=== PATIENT | male | born 1990 | race Caucasian/White ===

== ENCOUNTER 2016-10-30 03:37 | Observation (INO) | payer OTHER ==
[2016-10-30] VITALS (10 sets, daily range): BP systolic 112–135; BP diastolic 67–83
[~2016-10-30] VITALS: Ht 177.8 cm; Wt 100.0 kg
--- NOTE | 2016-10-30 05:53 | ED ORDER SUMMARY ---
..... Patient: ANUPAMA LAYNE OrderSheet [facility] VisitID: [id number] [place] [address] 25y, M Registration Date/Time: 10/30/2016 ORDER SHEET Weight: 99.7 kg (stated) Allergies: No Known Drug Allergy GENERAL ORDERS: Abdomen 1V Upright Urgent (03:51 10/30/2016 Monet PHELPS) (Ack 3:53 LMuller) (4:46 LMuller) CBC w Diff Urgent (03:52 10/30/2016 Monet PHELPS) (Ack 3:53 LMuller) (3:56 OZIELullard R.N.) CMP Urgent (03:52 10/30/2016 Monet PHELPS) (Ack 3:53 LMuller) (3:56 OZIELullard R.N.) Amylase Urgent (03:52 10/30/2016 Monet PHELPS) (Ack 3:53 LMuller) (3:56 OZIELullstevie R.N.) Lipase Urgent (03:52 10/30/2016 Monet PHELPS) (Ack 3:53 LMuller) (3:56 OZIELullard R.N.) UA-Culture if indicated Urgent (03:52 10/30/2016 Monet PHELPS) (Ack 3:53 LMuller) (4:34 Daxa R.N.) Urine Drug Screen Urgent (03:52 10/30/2016 Monet PHELPS) (Ack 3:53 LMuller) (4:34 OZ[address] R[address]N.) CT Abd/Pel w Cont (No) (N/A) Urgent (05:01 10/30/2016 Monet PHELPS) (Ack 5:01 LMuller) (5:22 LMuller) MEDICATION ORDERS: IV FLUIDS: IV NS : initial bolus 500 mL (1000 mL/hr), then 250 mL/hr for 4h (NOW); Routine (03:51 10/30/2016 Monet PHELPS) (4:35 Daxa R.N.) Zofran IV 4 mg (NOW) (03:52 10/30/2016 Monet PHELPS) (4:35 Daxa Sow) Dilaudid IV 0.5 mg (NOW) (03:52 10/30/2016 Monet PHELPS) (4:35 Daxa Sow) Dilaudid IV 1 mg (NOW) (05:58 10/30/2016 Monet PHELPS) (6:12 Daxa Florentino.) Zofran IV 4 mg (NOW) (05:59 10/30/2016 Monet PHELPS) (6:12 Daxa Sow) Invanz IV 1 gm (NOW) (06:00 10/30/2016 Monet PHELPS) (6:29 Daxa Sow) ORDER SHEET NOTES: [Electronically signed by Morgan Burrell MD (20:44 10/30/2016)] [Electronically signed by Darryl Hargrove R.N. (03:16 11/07/2016)] [Electronically locked/signed by Darryl Hargrove R.N. (03:16 11/07/2016)]
--- NOTE | 2016-10-30 05:53 | ED ORDER SUMMARY ---
..... Patient: ANUPAMA LAYNE OrderSheet [facility] VisitID: [id number] [place] [address] 25y, M Registration Date/Time: 10/30/2016 ORDER SHEET Weight: 99.7 kg (stated) Allergies: No Known Drug Allergy GENERAL ORDERS: Abdomen 1V Upright Urgent (03:51 10/30/2016 Monet PHELPS) (Ack 3:53 LMuller) (4:46 LMuller) CBC w Diff Urgent (03:52 10/30/2016 Monet PHELPS) (Ack 3:53 LMuller) (3:56 OZIELullard R.N.) CMP Urgent (03:52 10/30/2016 Monet PHELPS) (Ack 3:53 LMuller) (3:56 OZIELullard R.N.) Amylase Urgent (03:52 10/30/2016 Monet PHELPS) (Ack 3:53 LMuller) (3:56 OZIELullstevie R.N.) Lipase Urgent (03:52 10/30/2016 Monet PHELPS) (Ack 3:53 LMuller) (3:56 OZIELullard R.N.) UA-Culture if indicated Urgent (03:52 10/30/2016 Monet PHELPS) (Ack 3:53 LMuller) (4:34 Daxa R.N.) Urine Drug Screen Urgent (03:52 10/30/2016 Monet PHELPS) (Ack 3:53 LMuller) (4:34 OZIELullstevie R.N.) CT Abd/Pel w Cont (No) (N/A) Urgent (05:01 10/30/2016 Monet PHELPS) (Ack 5:01 LMuller) (5:22 LMuller) MEDICATION ORDERS: IV FLUIDS: IV NS : initial bolus 500 mL (1000 mL/hr), then 250 mL/hr for 4h (NOW); Routine (03:51 10/30/2016 Monet PHELPS) (4:35 Daxa R.N.) Zofran IV 4 mg (NOW) (03:52 10/30/2016 Monet PHELPS) (4:35 Daxa Sow) Dilaudid IV 0.5 mg (NOW) (03:52 10/30/2016 Monet PHELPS) (4:35 Daxa Sow) Dilaudid IV 1 mg (NOW) (05:58 10/30/2016 Monet PHELPS) (6:12 Daxa Florentino.) Zofran IV 4 mg (NOW) (05:59 10/30/2016 Monet PHELPS) (6:12 Daxa Sow) Invanz IV 1 gm (NOW) (06:00 10/30/2016 Monet PHELPS) (6:29 Daxa Sow) ORDER SHEET NOTES: [Electronically signed by Morgan Burrell MD (20:44 10/30/2016)] [Electronically signed by Darryl Hargrove R.N. (03:16 11/07/2016)] [Electronically locked/signed by Darryl Hargrove R.N. (03:16 11/07/2016)]
--- NOTE | 2016-10-30 05:53 | ED CLINICAL REPORT ---
Clinical Report - Physicians/Mid Levels [facility] [address] [place] [address] 10/30/2016 3:38 Patient: ANUPAMA LAYNE Time Seen: 03:47 Oct 30 2016. Arrived- By private vehicle. Historian- patient. CPT: ER phys charges level 5 (#[id number]). HISTORY OF PRESENT ILLNESS Chief Complaint: ABDOMINAL PAIN and DIARRHEA and NAUSEA. At its maximum, severity described as severe. When seen in the E.D., severity described as severe. Modifying factors- worsened by movement. Relieved by rest. It is described as "pain" and it is described as located in the right lower quadrant and in the periumbilical area. (The patient has had nausea and abdominal pain. He has had diarrhea (2 today). Last oral intake by patient was (3 1/2 hours ago).). Is still present. The patient has had nausea and vomiting. He has had mild diarrhea. This has occurred twice. Similar symptoms previously: None. Recent medical care: Not recently seen/assessed. REVIEW OF SYSTEMS No constipation, black stools, hematemesis, difficulty with urination or pain with urination. No urinary frequency, fever, sore throat or throat or chest pain. No difficulty breathing, cough, joint pain, skin rash or chills. No back pain, fever, cough, weakness or diabetic symptoms. No easy bruising. All systems otherwise negative, except as recorded above. PAST HISTORY Negative. Problems: no known problems. Medications: None. Allergies: No Known Drug Allergy. SOCIAL HISTORY History of drug use: marijuana. ADDITIONAL NOTES The nursing notes have been reviewed. PHYSICAL EXAM Vital Signs: 10/30/2016 03:41 BP: 122/77. HR: 82. RR: 24. O2 saturation: 99%. Temp: 98.7 F. Appearance: Alert. Appears to be in pain. Patient in moderate distress. Eyes: Eyes normal inspection. ENT: Pharynx normal. Neck: Normal inspection. Neck supple. CVS: Normal heart rate and rhythm. Heart sounds normal. Pulses normal. Respiratory: No respiratory distress. Breath sounds normal. Chest nontender. Abdomen: Soft. Moderate tenderness in the right side of the abdomen, periumbilical area and right lower quadrant with guarding present. Abnormal bowel sounds: diminished. No mass. Back: Normal inspection. No CVA tenderness. Skin: Skin warm. Normal skin color. No rash. Extremities: Extremities exhibit normal ROM. No lower extremity edema. Neuro: Oriented X 3. No motor deficit. No sensory deficit. LABS, X-RAYS, AND EKG Abdominal CT: There is evidence of appendicitis (retrocecal.). No inflammatory phlegmon, focal abscess or perforation with free air. Abdominal CT performed with IV contrast. The study was independently viewed by me, interpreted by the radiologist and discussed with the radiologist. Laboratory Tests: UA-Culture if indicated: (KSENIA: 10/30/2016 03:39) ( MsgRcvd 10/30/2016 05:22) Final results Test Result Flag Units (Reference) URINE COLOR YELLOW URINE APPEARANCE SLIGHTLY HAZY URINE GLUCOSE NEGATIVE (NEGATIVE) URINE BILIRUBIN NEGATIVE (NEGATIVE) URINE KETONE NEGATIVE (NEGATIVE) URINE SPECIFIC GRAVITY 1.025 (1.010-1.030) URINE PH 7.0 (5.0-8.0) URINE PROTEIN NEGATIVE (NEGATIVE) URINE UROBILINOGEN 0.2 EU/dL (0.2-1.0) URINE NITRITE NEGATIVE (NEGATIVE) URINE BLOOD NEGATIVE (NEGATIVE) URINE LEUK ESTERASE NEGATIVE (NEGATIVE) URINE RBC RARE rbc/hpf (0-1) URINE WBC 0-1 wbc/hpf (0-1) URINE EPITHELIAL CELLS NONE SEEN EPI/hpf (0-5) URINE BACTERIA NONE SEEN (NONE SEEN) URINE COMMENT CULT NOT INDICATED 3+ AMORPHOUSURINE CULTURES ARE SET-UP BASED ON THE FOLLOWING CRITERIA:POSITIVE NITRITEPOSITIVE LEUKOCYTE ESTERASEGREATER THAN 10 WHITE BLOOD CELLSMODERATE (2+) OR GREATER BACTERIA CBC w Diff: (KSENIA: 10/30/2016 03:45) ( MsgRcvd 10/30/2016 04:02) Final results Test Result Flag Units (Reference) WHITE BLOOD COUNT 13.8 H K/uL (4.5-11.5) RED BLOOD COUNT 6.02 *H M/uL (4.50-5.90) HEMOGLOBIN 16.6 gm/dL (13.5-17.5) HEMATOCRIT 49.4 % (41.0-53.0) MEAN CELL VOLUME 82 fL (80-100) MEAN CORPUSCULAR HGB 28 pg (26-34) MEAN CORPUSCULAR HGB CONC 34 g/dL (31-37) RED CELL DISTRIBUTION WIDTH 13.3 % (11.6-14.8) PLATELET COUNT 249 K/uL (150-400) NEUTROPHIL % 66.4 % (50-75) LYMPH % 24.7 L % (25-40) MONO % 7.8 % (3-14) EOSINOPHIL % 0.4 % (0-4) BASOPHIL % 0.7 % (0-2) Urine Drug Screen: (KSENIA: 10/30/2016 03:45) ( MsgRcvd 10/30/2016 05:33) Final results Test Result Flag Units (Reference) AMPHETAMINE/METHAMPHETAMINE NEGATIVE (NEGATIVE) BARBITURATE NEGATIVE (NEGATIVE) BENZODIAZEPINE NEGATIVE (NEGATIVE) CANNABINOID POSITIVE H (NEGATIVE) COCAINE NEGATIVE (NEGATIVE) ECSTASY NEGATIVE (NEGATIVE) METHADONE NEGATIVE (NEGATIVE) OPIATE NEGATIVE (NEGATIVE) The urine drug screen is a qualitative screening test fordrug overdose and abuse. All screen results should beconsidered as presumptive.Drugs screened for are as follows:BenzodiazepinesCocaineAmphetamines/MetamphetaminesTHC (Tetrahydrocannabinol)OpiatesBarbituratesEcstasyMethadonePositive results are unconfirmed. For confirmation, notifythe lab for the specimen to be sent to the reference lab.All confirmations must be performed by a differentmethodology.The ingestion of natural herbal and plant productscontaining Ephedra/Ephedra metabolites can produce in urineone or more substances capable of cross reacting withamphetamine/methamphetamine immunoassays. These testsprovide a preliminary result only. A more specificalternative chemical method must be used to obtain aconfirmed analytical result. CMP: (KSENIA: 10/30/2016 03:45) ( MsgRcvd 10/30/2016 04:17) Final results Test Result Flag Units (Reference) GLUCOSE 103 mg/dL (70-110) BUN 23 H mg/dL (7-18) CREATININE 1.0 mg/dL (0.6-1.3) Estimated GFR >60 mL/min Estimated GFR- >60 mL/min Note: Persistent reduction over 3 months in eGFR<60 mL/min/1.73 m2 defines CKD. Patients with eGFR values>=60 mL/min/1.73 m2 may also have CKD if evidence ofpersistent proteinuria. Additional information may be foundat www.kidney.org. SODIUM 142 mmol/L (136-145) POTASSIUM 3.7 mmol/L (3.5-5.1) CHLORIDE 104 mmol/L (98-107) CARBON DIOXIDE 26 mmol/L (21-32) CALCIUM 9.7 mg/dL (8.5-10.1) TOTAL PROTEIN 8.6 H g/dL (6.4-8.2) ALBUMIN 4.4 g/dL (3.3-5.0) BILIRUBIN, TOTAL 0.4 mg/dL (0.0-1.0) ALKALINE PHOSPHATASE 83 U/L (46-116) AST (SGOT) 21 U/L (15-37) ALT (SGPT) 39 U/L (12-78) LIPASE 159 U/L (73-393) AMYLASE 54 U/L (25-115) . PROGRESS AND PROCEDURES Course of Care: IV NS Dilaudid 0.5 mg Iv Zofran 4 mg IV Minimally better Dilaudid 1 mg Iv Zofran 4 mg IV Invanz 1g IV Patient is stable. Discussed case with on-call health care provider, (Karis). Reviewed test results. Agreed upon treatment plan and decision to admit. Health care provider will see patient in hospital. Patient/family counseled. Disposition orders written. Disposition: Admitted to Acute Care. CLINICAL IMPRESSION Acute appendicitis with localized peritonitis. (Electronically signed by Morgan Burrell MD 10/30/2016 20:44)
--- NOTE | 2016-10-30 05:53 | ED NURSING NOTES ---
Clinical Report - Nurses [place] [address] [place] [address] 10/30/2016 3:38 Patient: ANUPAMA LAYNE TRIAGE Triage time 0340. Chief Complaint: ABDOMINAL PAIN, NAUSEA and DIARRHEA. --03:45 Darryl Hargrove R.N. 03:41 10/30/16. BP: 122/77. HR: 82. RR: 24. O2 saturation: 99%. Temp: 98.7 F. Pain level now 08/03. --03:45 Darryl Hargrove R.N. Weight: 99.7 kg stated. Height/Length: 70 inches Per Patient. BMI: 31.5. --03:42 Darryl Hargrove R.N. Medications None. --03:44 Darryl Hargrove R.N. Allergies No Known Drug Allergy. --03:44 Darryl Hargrove R.N. History Arrived by private vehicle. Historian: patient. Accompanied by family. The patient has had nausea and abdominal pain. He has had diarrhea (2 today). Last oral intake by patient was (3 1/2 hours ago). SOCIAL HX: History of drug use: marijuana. No infectious disease exposure. FALL RISK ASSESSMENT: Fall risk assessment completed. No fall risk identified. NUTRITIONAL RISK ASSESSMENT: The nutritional risk assessment revealed no deficiencies. FUNCTIONAL ASSESSMENT: Functional assessment: no impairments noted. LEARNING NEEDS ASSESSMENT: The learning needs assessment revealed no barriers. SKIN INTEGRITY ASSESSMENT: Skin integrity risk assessment completed. No skin integrity risk identified. --03:45 Darryl Hargrove R.N. Interventions ID band on patient. --03:45 Darryl Hargrove R.N. PHYSICAL ASSESSMENT GENERAL / NEURO / PSYCH: Alert. Oriented X 4. HEENT: Mucous membranes are pink. RESPIRATORY: Respirations not labored. CVS: Capillary refill less than 2 seconds. GI / : Abdomen soft. SKIN: Skin is warm and dry. --03:45 Darryl Hargrove R.N. Ambulatory to room. --03:45 Darryl Hargrove R.N. ( negative for rebounding). --03:48 Darryl Hargrove R.N. NURSING PROGRESS NOTES 03:47 10/30/2016 Site #1 started via IV in the left antecubital space with an 18g angiocath, with aseptic technique and good blood return; one attempt. Blood drawn: rainbow set. Labeled in the presence of the patient and sent to the lab. Saline lock flushed with saline. --03:47 Darryl Hargrove R.N. Patient gowned. Head of bed elevated. Reassurance given. Patient identifiers checked. Call light placed in reach. Bed placed in lowest position. Brakes of bed on. --03:47 Darryl Hargrove R.N. 04:35 10/30/2016 Dilaudid (HYDROmorphone HCl PF) IVP 0.5 mg given. via site #1. Allergies verified, confirmed 5 rights and sedative warning given to the patient and patient's family. IV patency established. IV site checked: no pain, redness, or swelling. IV flushed thoroughly pre- and post-medication administration. IVP given by RN. --04:35 Darryl Hargrove R.N. 04:35 10/30/2016 Zofran (Ondansetron HCl) IVP 4 mg given. via site #1. Allergies verified and confirmed 5 rights. IV patency established. IV site checked: no pain, redness, or swelling. IV flushed thoroughly pre- and post-medication administration. IVP given by RN. --04:35 Darryl Hargrove R.N. 04:35 10/30/2016 Started bag #1 1000 mL IV Fluids IV NS (Saline); bolus of 1000 mL wide open via site #1. Allergies verified and confirmed 5 rights. IV patency established. IV site checked: no pain, redness, or swelling. IV flushed thoroughly pre- and post-medication administration. --04:35 Darryl Hargrove R.N. 06:12 10/30/2016 Dilaudid (HYDROmorphone HCl PF) IVP 1 mg given. via site #1. Allergies verified, confirmed 5 rights and sedative warning given to the patient and patient's family. IV patency established. IV site checked: no pain, redness, or swelling. IV flushed thoroughly pre- and post-medication administration. --06:12 Darryl Hargrove R.N. 06:12 10/30/2016 Zofran (Ondansetron HCl) IVP 4 mg given. via site #1. Allergies verified and confirmed 5 rights. IV patency established. IV site checked: no pain, redness, or swelling. IV flushed thoroughly pre- and post-medication administration. IVP given by RN. --06:12 Darryl Hargrove R.N. 06:29 10/30/2016 Invanz IVP 1 gm given. via site #1. Allergies verified and confirmed 5 rights. IV patency established. IV site checked: no pain, redness, or swelling. IV flushed thoroughly pre- and post-medication administration. --06:29 Darryl Hargrove R.N. Locked/Released at 11/07/2016 3:16 by Darryl Hargrove R.N.
--- NOTE | 2016-10-30 07:03 | DIAGNOSTIC IMAGING REPORT ---
PROCEDURE: XR ABDOMEN 1 VIEW UPRIGHT INDICATION: ABDOMINAL PAIN TECHNIQUE: AP upright view. COMPARISON: None. FINDINGS: Nonspecific bowel gas pattern with mild residual stool. No suspicious mass or calcification. Bones are unremarkable. IMPRESSION: 1. Nonspecific bowel gas pattern.
--- NOTE | 2016-10-30 07:13 | DIAGNOSTIC IMAGING REPORT ---
PROCEDURE: CT ABD/PELVIS WITH CONTRAST CLINICAL INDICATION: Upper abdominal pain with nausea and vomiting. Initial encounter. TECHNIQUE: 100 ml of Isovue 300 were injected intravenously and axial images were obtained of the entire abdomen and pelvis with sagittal and coronal reformations. COMPARISON: None. FINDINGS: ABDOMEN: Appendicolith with dilated (1.1 cm) fluid filled appendix and mild adjacent fat stranding. No evidence of an abscess. Lung bases are clear. Heart size is normal. Liver, gallbladder, pancreas, spleen, adrenal glands, kidneys and abdominal aorta are normal. PELVIS: There is no pelvic mass, inflammatory changes or free fluid. Bones are unremarkable. IMPRESSION: 1. Appendicolith with findings consistent with acute appendicitis 2. Preliminary results submitted [facility] Cam[facility]. All CT scans at this facility use dose modulation, iterative reconstruction, and/or weight-based dosing when appropriate to reduce radiation dose to as low as reasonably achievable.
--- NOTE | 2016-10-30 07:13 | DIAGNOSTIC IMAGING REPORT ---
PROCEDURE: CT ABD/PELVIS WITH CONTRAST CLINICAL INDICATION: Upper abdominal pain with nausea and vomiting. Initial encounter. TECHNIQUE: 100 ml of Isovue 300 were injected intravenously and axial images were obtained of the entire abdomen and pelvis with sagittal and coronal reformations. COMPARISON: None. FINDINGS: ABDOMEN: Appendicolith with dilated (1.1 cm) fluid filled appendix and mild adjacent fat stranding. No evidence of an abscess. Lung bases are clear. Heart size is normal. Liver, gallbladder, pancreas, spleen, adrenal glands, kidneys and abdominal aorta are normal. PELVIS: There is no pelvic mass, inflammatory changes or free fluid. Bones are unremarkable. IMPRESSION: 1. Appendicolith with findings consistent with acute appendicitis 2. Preliminary results submitted by Dr. Camacho, [facility] radiology. All CT scans at this facility use dose modulation, iterative reconstruction, and/or weight-based dosing when appropriate to reduce radiation dose to as low as reasonably achievable.
[2016-10-30] MEDS ORDERED: NORCO1 TA1 PO (13:14)
--- NOTE | 2016-10-30 13:15 | Provider's Discharge Care Plan ---
Problem, Goal, Plan Problem List 1. Acute appendicitis
--- NOTE | 2016-10-30 13:15 | Provider's Discharge Care Plan ---
Problem, Goal, Plan Problem List 1. Acute appendicitis
--- NOTE | 2016-10-30 14:09 | CONSULTATION REPORT ---
DATE OF CONSULTATION: 10/30/2016 CHIEF COMPLAINT: 1. Abdominal pain HISTORY OF PRESENT ILLNESS: The patient is a 25-year-old man presenting with a 2 -day history of worsening right lower quadrant abdominal pain. The patient reports that he had some loose stools at the onset of the pain, but no ongoing diarrhea. He had nausea but no vomiting. The pain is now worsening in the right lower quadrant of the abdomen and localized to one site. He does not feel hungry. MEDICAL/SURGICAL HISTORY: Medical problems none. Surgery none. MEDICATIONS: 1. None. ALLERGIES: 1. NONE. SOCIAL HISTORY: The patient is single and lives with his mother. He currently works at [employer]. He does not smoke cigarettes or take alcohol. He uses cannabis recreationally. The patient attended [employer]. FAMILY HISTORY: Negative for hereditary disorders. REVIEW OF SYSTEMS: A multipoint review of systems was obtained. 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 He denies any other review of systems complaints covering at least 8 systems. PHYSICAL EXAMINATION: VITAL SIGNS: The patient's initial vital signs: Height 5 feet 10 inches, weight 220 pounds, initial blood pressure 122/77, temperature 98.7, pulse 82, respirations 24. HEENT: Ears and nose demonstrate no gross external lesion. He had a pierced ear EYES: equal and anicteric. NECK: Without masses or thyromegaly. CHEST: Clear to auscultation. HEART: Regular, without murmur or gallop. ABDOMEN: Reveals localized tenderness and guarding right lower quadrant at McBurney's point with referred pain to this area. Bowel sounds are active. He is nondistended. EXTREMITIES: Symmetric. He appears to move without restriction. NEURO: no motor or sensory deficits, motor cranial nerves are normal LAB/IMAGING: Demonstrated leukocytosis of 13,000. His CT scan of the abdomen demonstrates an appendicolith and findings consistent with acute appendicitis. His hemoglobin and hematocrit are 16 and 49. Electrolytes are normal. IMPRESSION: Acute appendicitis. PLAN: I recommended the patient undergo a laparoscopic appendectomy. I made him aware of the nature of the surgery, as well as risks, including risk of infection, bleeding, scars, pain, damage to local structures, possible alternative diagnoses or no surgical pathology. He was also made aware that open surgery could happen but is unlikely. The patient would like to proceed with surgery as described to him.
--- NOTE | 2016-10-30 14:09 | CONSULTATION REPORT ---
DATE OF CONSULTATION: 10/30/2016 CHIEF COMPLAINT: 1. Abdominal pain HISTORY OF PRESENT ILLNESS: The patient is a 25-year-old man presenting with a 2 -day history of worsening right lower quadrant abdominal pain. The patient reports that he had some loose stools at the onset of the pain, but no ongoing diarrhea. He had nausea but no vomiting. The pain is now worsening in the right lower quadrant of the abdomen and localized to one site. He does not feel hungry. MEDICAL/SURGICAL HISTORY: Medical problems none. Surgery none. MEDICATIONS: 1. None. ALLERGIES: 1. NONE. SOCIAL HISTORY: The patient is single and lives with his mother. He currently works at [employer]. He does not smoke cigarettes or take alcohol. He uses cannabis recreationally. The patient attended [employer]. FAMILY HISTORY: Negative for hereditary disorders. REVIEW OF SYSTEMS: A multipoint review of systems was obtained. 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 He denies any other review of systems complaints covering at least 8 systems. PHYSICAL EXAMINATION: VITAL SIGNS: The patient's initial vital signs: Height 5 feet 10 inches, weight 220 pounds, initial blood pressure 122/77, temperature 98.7, pulse 82, respirations 24. HEENT: Ears and nose demonstrate no gross external lesion. He had a pierced ear EYES: equal and anicteric. NECK: Without masses or thyromegaly. CHEST: Clear to auscultation. HEART: Regular, without murmur or gallop. ABDOMEN: Reveals localized tenderness and guarding right lower quadrant at McBurney's point with referred pain to this area. Bowel sounds are active. He is nondistended. EXTREMITIES: Symmetric. He appears to move without restriction. NEURO: no motor or sensory deficits, motor cranial nerves are normal LAB/IMAGING: Demonstrated leukocytosis of 13,000. His CT scan of the abdomen demonstrates an appendicolith and findings consistent with acute appendicitis. His hemoglobin and hematocrit are 16 and 49. Electrolytes are normal. IMPRESSION: Acute appendicitis. PLAN: I recommended the patient undergo a laparoscopic appendectomy. I made him aware of the nature of the surgery, as well as risks, including risk of infection, bleeding, scars, pain, damage to local structures, possible alternative diagnoses or no surgical pathology. He was also made aware that open surgery could happen but is unlikely. The patient would like to proceed with surgery as described to him.
--- NOTE | 2016-10-30 14:10 | OPERATIVE REPORT ---
DATE OF SURGERY: 10/30/2016 SURGEON: Jacob Dyson MD PREOPERATIVE DIAGNOSIS: 1. Acute appendicitis POSTOPERATIVE DIAGNOSIS: 1. Acute suppurative appendicitis PROCEDURE PERFORMED: 1. Laparoscopic appendectomy ANESTHESIA: General. INDICATIONS: The patient is a 25-year-old man presenting with a 2-day history of abdominal pain and leukocytosis. SURGICAL TECHNIQUE: The patient was taken to the operating room, where a general anesthetic was administered and the patient prepped and draped in the usual sterile fashion. The patient had long-acting IV antibiotics on board. A local anesthetic of 0.5% Marcaine with epinephrine was used at each incision site. An intraumbilical incision was made and a Veress needle used to insufflate the abdominal cavity. A 10 mm cannula was passed and a 5 and a 10 mm cannula placed in the lower midline. The appendix was found to be inflamed and thickened and lying in a para and partially retrocecal position. It was stuck in this location alongside the cecum and some blunt mobilization demonstrated his front wall to be acutely suppurative but not gangrenous or perforated. The tip of the appendix where it met the cecum appeared to be relatively normal. A circumferential dissection was done at this location and the appendix was clipped with 2 Hem-o- Christal clips. The specimen side was clipped and the appendix divided. The appendix was then taken down retrograde following it up into the colic gutter and taking off the mesoappendix using the Thunderbeat device. The freed up appendix was thicken enough to not fit through the cannula, therefore it was placed in a specimen bag and extracted. Additional Marcaine was instilled. Gas was evacuated, and the skin sites closed with interrupted subcuticular 4-0 Vicryl suture. Steri-Strips and dressings were placed at all sites and the patient left in stable condition. No intraoperative complications were encountered.
--- NOTE | 2016-11-07 03:16 | ED MAR SUMMARY ---
..... Medication Administration Record [facility] [address] [place] [address] Patient: ANUPAMA LAYNE Visit ID: [id number] 25y, M Weight: 99.7 kg Height/Length: 70 in BMI: 31.5 ALLERGIES: No Known Drug Allergy Start 04:35 10/30/2016 Darryl Hargrove R.N. Medication Administered: IV NS (SALINE), Dose: IV Fluids, Bolus: 1000 mL wide open, Dispensed: 1000 mL bag, Site: #1 left AC. Medication Ordered: IV NS : initial bolus 500 mL (1000 mL/hr), then 250 mL/hr for 4h (NOW); Routine. Given 04:10/30/2016 Darryl Hargrove R.N. Medication Administered: ZOFRAN [IVP] (ONDANSETRON HCL), Dose: 4 mg IVP, Site: #1 left AC. Medication Ordered: Zofran IV 4 mg (NOW). Given 04:10/30/2016 Darryl Hargrove R.N. Medication Administered: DILAUDID [IVP] (HYDROMORPHONE HCL PF), Dose: 0.5 mg IVP, Site: #1 left AC. Medication Ordered: Dilaudid IV 0.5 mg (NOW). Given 06:10/30/2016 Darryl Hargrove R.N. Medication Administered: DILAUDID [IVP] (HYDROMORPHONE HCL PF), Dose: 1 mg IVP, Site: #1 left AC. Medication Ordered: Dilaudid IV 1 mg (NOW). Given 06:10/30/2016 Darryl Hargrove R.N. Medication Administered: ZOFRAN [IVP] (ONDANSETRON HCL), Dose: 4 mg IVP, Site: #1 left AC. Medication Ordered: Zofran IV 4 mg (NOW). Given 06:10/30/2016 Darryl Hargrove R.N. Medication Administered: INVANZ [IVP], Dose: 1 gm IVP, Site: #1 left AC. Medication Ordered: Invanz IV 1 gm (NOW).
--- NOTE | 2016-11-07 03:16 | ED DISCHARGE INSTRUCTIONS ---
Patient: ANUPAMA LAYNE General Instructions [facility] VisitID: [id number] [address] [place] [address] 25y, M Registration Date/Time: 10/30/2016 Acute appendicitis with localized peritonitis. (Electronically signed by Morgan Burrell MD 10/30/2016 20:44)
--- NOTE | 2016-11-07 03:16 | ED MED RECONCILIATION SUMMARY ---
Patient: ANUPAMA LAYNE Medication Reconciliation Report [facility] VisitID: [id number] [address] [place] [address] 25y, M Registration Date/Time: 10/30/2016 Weight: 99.7 kg Height/Length: 70 in. BMI: 31.5 ALLERGIES: No Known Drug Allergy The patient's Home Medications are listed below: NONE. The source(s) of the original Home Medication information: Not obtained. The following Medications were given to the patient in the Emergency Department: Dilaudid [IVP] IVP 0.5 mg, administered: 10/30/2016 4:35:00 AM Zofran [IVP] IVP 4 mg, administered: 10/30/2016 4:35:00 AM IV NS IV Fluids bolus 1000 mL wide open, administered: 10/30/2016 4:35:00 AM Dilaudid [IVP] IVP 1 mg, administered: 10/30/2016 6:12:00 AM Zofran [IVP] IVP 4 mg, administered: 10/30/2016 6:12:00 AM Invanz [IVP] IVP 1 gm, administered: 10/30/2016 6:29:00 AM The following Medications were prescribed to the patient: None.
--- NOTE | 2016-11-07 03:16 | ED DISCHARGE INSTRUCTIONS ---
Patient: ANUPAMA LAYNE General Instructions [facility] VisitID: [id number] [address] [place] [address] 25y, M Registration Date/Time: 10/30/2016 Acute appendicitis with localized peritonitis. (Electronically signed by Morgan Burrell MD 10/30/2016 20:44)
--- NOTE | 2016-11-07 03:16 | ED MED RECONCILIATION SUMMARY ---
Patient: ANUPAMA LAYNE Medication Reconciliation Report [facility] VisitID: [id number] [address] [place] [address] 25y, M Registration Date/Time: 10/30/2016 Weight: 99.7 kg Height/Length: 70 in. BMI: 31.5 ALLERGIES: No Known Drug Allergy The patient's Home Medications are listed below: NONE. The source(s) of the original Home Medication information: Not obtained. The following Medications were given to the patient in the Emergency Department: Dilaudid [IVP] IVP 0.5 mg, administered: 10/30/2016 4:35:00 AM Zofran [IVP] IVP 4 mg, administered: 10/30/2016 4:35:00 AM IV NS IV Fluids bolus 1000 mL wide open, administered: 10/30/2016 4:35:00 AM Dilaudid [IVP] IVP 1 mg, administered: 10/30/2016 6:12:00 AM Zofran [IVP] IVP 4 mg, administered: 10/30/2016 6:12:00 AM Invanz [IVP] IVP 1 gm, administered: 10/30/2016 6:29:00 AM The following Medications were prescribed to the patient: None.
--- NOTE | 2016-11-07 03:16 | ED MAR SUMMARY ---
..... Medication Administration Record [facility] [address] [place] [address] Patient: ANUPAMA LAYNE Visit ID: [id number] 25y, M Weight: 99.7 kg Height/Length: 70 in BMI: 31.5 ALLERGIES: No Known Drug Allergy Start 04:35 10/30/2016 Darryl Hargrove R.N. Medication Administered: IV NS (SALINE), Dose: IV Fluids, Bolus: 1000 mL wide open, Dispensed: 1000 mL bag, Site: #1 left AC. Medication Ordered: IV NS : initial bolus 500 mL (1000 mL/hr), then 250 mL/hr for 4h (NOW); Routine. Given 04:10/30/2016 Darryl Hargrove R.N. Medication Administered: ZOFRAN [IVP] (ONDANSETRON HCL), Dose: 4 mg IVP, Site: #1 left AC. Medication Ordered: Zofran IV 4 mg (NOW). Given 04:10/30/2016 Darryl Hargrove R.N. Medication Administered: DILAUDID [IVP] (HYDROMORPHONE HCL PF), Dose: 0.5 mg IVP, Site: #1 left AC. Medication Ordered: Dilaudid IV 0.5 mg (NOW). Given 06:10/30/2016 Darryl Hargrove R.N. Medication Administered: DILAUDID [IVP] (HYDROMORPHONE HCL PF), Dose: 1 mg IVP, Site: #1 left AC. Medication Ordered: Dilaudid IV 1 mg (NOW). Given 06:10/30/2016 Darryl Hargrove R.N. Medication Administered: ZOFRAN [IVP] (ONDANSETRON HCL), Dose: 4 mg IVP, Site: #1 left AC. Medication Ordered: Zofran IV 4 mg (NOW). Given 06:10/30/2016 Darryl Hargrove R.N. Medication Administered: INVANZ [IVP], Dose: 1 gm IVP, Site: #1 left AC. Medication Ordered: Invanz IV 1 gm (NOW).
== END 2016-10-30 16:10 | disposition home or self-care (01) ==
LOC: ED SRH 03:37 → ACUTE3 SRH 06:37 → TRANS SRH 06:37 → ACUTE3 SRH 07:00
PROVIDERS: ADMIT Surgery
PROC: 0DTJ4ZZ Resection of Appendix, Percutaneous Endoscopic Approach (ICD-10-PCS; principal; 2016-10-30 12:00)
DX: K35.3 Acute appendicitis with localized peritonitis (principal); R11.0 Nausea
CPT/HCPCS: 29229; 50002; 60001; 70002; 80102; 80212; 80248; 80852; 82811; 82897; 83587; 83919; 83982; 84038; 85420; 85447; 90004; 90100; 92235; 92530; 92760; 92761; 92762; 92763; 92764; 92765; 92766; 92767; 95059